=== PATIENT | male | born 1955 | race Caucasian/White ===

== ENCOUNTER 2022-09-06 11:15 | Outpatient (RCR) | payer OTHER, MEDICARE, SELFPAY ==
--- NOTE | 2022-08-29 17:36 | PT.OPE ---
PT [place] [facility] Eval PT [facility] Eval Start: 08/29/22 16:14 Freq: Status: Active Protocol: Document 08/29/22 17:13 HOWARD (Rec: 08/29/22 17:31 HOWARD Desktop) E-signed By William Blue, PT, ATC Physical Therapy Outpatient Evaluation Insurance Information Insurance Name [facility],Medicare B Medical Diagnosis M25.559 pain in unspecified hip Treating Diagnosis L hip pain Referring Brigido Perez Subjective Subjective Chief complaint is L lateral hip pain occurring when crossing L leg over R knee or following extended periods of walking or standing. Can also hurt with WB'ing in the mornings. Pain is sharp and rated 6/10. Gets some relief with self stretching. 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 The sharp pain began insidiously 5 months ago and seem to be gradually worsening. No complaint of groin pain. He says he is scheduled for a second lumbar nerve ablasion procedure on August. 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 Palpation Tender more at distal end of both L gluteus medius and piriformis-musculotendinous junction. Balance & Gait SLS on L side does not create L sided hip pain Posture Tall slender with normal muscle contour and presence bilaterally in LE's. Assessment Assessment/Impression Kurt is a pleasant 67 year old referred to PT because of L lateral hip pain which effects his ability to walk or stand for longer durations. The pain is described as sharp and rated a 6/10. Location is within the the L gluteus medius and piriformis muscles, especially musculotendinous junctions near greater trochanter insertion. X-rays did not identify O.A. and no history of injury or instability. 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 Skilled PT recommended to address soft tissue tightness, pain and ABD weakness. Primary Functional Limitations Extended walking or standing Plan of Care Rehabilitation Potential Good Rehabilitation Potential Comments Able to lessen Kurt's symptoms some following todays treatment of US, manual therapy and passive stretching to gluteal, piriformis muscles and ITB complex. Physical Therapy Goals 1.Independent performance with HEP for self lateral hip stretching and self manual mobilization of soft tissue. 2.To stand x 20 min.s and walk x 15 min.s with L lateral hip pain 2/10 or less. 3.L and R hip ABD strength to 5/5. Coordination/Communication With Referral Source Frequency/Duration 1-2x a week 6-12 weeks Patient Will Be Discharged From Therapy Independent w/HEP, Independently Progressing Evaluation Billing Untimed Code Treatment Minutes 30 PT Eval No Charge No Complexity Low Certification Information Initial Certification Date 08/29/22 Ending Certification Date 11/29/22 Provider Signature Shows Agreement With POC & Medical Necessity Physician Signature & Date Requested Please Sign/Date Here Physician Comment/Change : Physician NPI Number #
== END 2023-05-18 23:59 | disposition home or self-care (01) ==
PROVIDERS: PCP Family Medicine; Visit Provider Physician Assistant Surgical
DX: M25.552 Pain in left hip (principal); Z51.89 Encounter for other specified aftercare
CPT/HCPCS: 97035; 97110; 97140; 97161

== ENCOUNTER 2023-08-29 07:56 | Outpatient (CLI) | payer OTHER, MEDICARE, SELFPAY | END 2023-08-29 07:57 | disposition home or self-care (01) | PROVIDERS: PCP Family Medicine; Visit Provider Family Medicine | DX: Z00.00 Encounter for general adult medical examination without abnormal findings (principal); E78.5 Hyperlipidemia, unspecified; Z12.5 Encounter for screening for malignant neoplasm of prostate; Z13.1 Encounter for screening for diabetes mellitus | CPT/HCPCS: 80048; 80061; 84153 ==

== ENCOUNTER 2024-11-12 09:25 | Outpatient (CLI) | payer MEDICARE, OTHER, SELFPAY | END 2024-11-12 09:26 | disposition home or self-care (01) | PROVIDERS: PCP Family Medicine; Visit Provider Family Medicine | DX: E78.2 Mixed hyperlipidemia (principal); Z13.1 Encounter for screening for diabetes mellitus; Z12.5 Encounter for screening for malignant neoplasm of prostate; Z13.29 Encounter for screening for other suspected endocrine disorder; Z13.21 Encounter for screening for nutritional disorder | CPT/HCPCS: 80048; 80061; 82607; 84443; G0103 ==